=== PATIENT | female | born 2000 | race Caucasian/White ===

== ENCOUNTER 2021-08-04 21:36 | Inpatient (IN) ==
[2021-08-04] MEDS ORDERED: Lidocaine -MPF 1% 5 ML AMPUL INFILT PRN (21:39)
[2021-08-04] MEDS ORDERED: Metoclopramide 10 MG/2 ML VIAL IVP PRN (21:39)
[2021-08-04] MEDS ORDERED: Azithromycin 500 MG in 0.9 % Sodium Chloride 250 ML IVPB PRN (21:39)
[2021-08-04] MEDS ORDERED: Famotidine 20 MG/2 ML VIAL IVP PRN (21:39)
[2021-08-04] MEDS ORDERED: Ondansetron 4 MG/2 ML VIAL IVP PRN (21:39)
[2021-08-04] MEDS ORDERED: Naloxone 0.4 MG/ML INJ IVP PRN (21:39)
[2021-08-04] MEDS ORDERED: Ampicillin 2,000 MG in 0.9 % Sodium Chloride Mini Bag 100 ML IVPB ONE (22:00)
[2021-08-04] MEDS ORDERED: EPHEDrine 50 MG/ML VIAL IVP PRN (23:07)
[2021-08-04] MEDS ORDERED: Epidural Premix (fent/bupiv) 110 ML EP SCH (23:15)
[2021-08-04] MEDS: Ringers Solution, Lactated 1,000 ML IVC SCH (23:49)
[2021-08-05 00:20] LABS: Basophils % 0.2 %; Eosinophils % 0.1 %; Hematocrit 35.6 % (35.3-44.9); Hemoglobin 12.3 g/dL (11.5-15.4); Immature Granulocytes % 0.8 % (0-4); Lymphocytes # 1.8 K/mcL (0.6-4.6); Mean Corpuscular HGB Conc 34.6 g/dL (31.6-35.5); Mean Corpuscular Hemoglobin 31.5 pg (28.0-33.3); Mean Corpuscular Volume 91.3 fL (83.0-100.0); Mean Platelet Volume 9.2 fL (9.4-12.4); Monocytes % 5.9 %; Neutrophils # 14.6 K/mcL (1.6-8.9); Platelet Count 287 K/mcL (140-400); Red Cell Distribution Width 12.6 % (11.5-14.5); White Blood Count 17.6 K/mcL (4.3-11.1)
[2021-08-05 00:57] LABS: Influenza A PCR Negative (Negative); Influenza B PCR Negative (Negative); Resp. Syncytial Virus PCR Negative (Negative)
[2021-08-05 00:58] LABS: SARS-CoV-2 by PCR (In House) Negative (Negative)
[2021-08-05 01:15] LABS: Estimated Average Glucose 97 mg/dl
[2021-08-05] MEDS ORDERED: Ampicillin 1,000 MG in 0.9 % Sodium Chloride Mini Bag 100 ML IVPB SCH (02:00)
[2021-08-05] MEDS: Oxytocin 30 UNIT/503 ML BAG IVC SCH ×2 (04:46→08:30)
[2021-08-05] MEDS: Ringers Solution, Lactated 1,000 ML IVC SCH (04:52)
[2021-08-05] MEDS ORDERED: *HR* Nalbuphine 10 MG/ML AMPUL IV PRN (06:35)
[2021-08-05] MEDS ORDERED: *HR* OxyCODONE Immed Rel 5 MG TABLET PO PRN (11:24)
[2021-08-05] MEDS ORDERED: Benzocaine/Menthol 56 GM AEROSOL SPRAY TP PRN (11:24)
[2021-08-05] MEDS ORDERED: Ondansetron ODT 4 MG TAB.RAPDIS SL PRN (11:24)
[2021-08-05] MEDS ORDERED: Oxytocin 30 UNIT/503 ML BAG IVC SCH (11:24)
[2021-08-05] MEDS ORDERED: Lanolin 7 G OINT...G. TP PRN (11:24)
[2021-08-05] MEDS ORDERED: OXYTOCIN/RINGERS LACTATE 10 UNIT/166.6 ML BAG IVC ONE (11:24)
[2021-08-05] MEDS: Acetaminophen 325 MG TABLET PO SCH ×2 (12:03→17:50)
[2021-08-05] MEDS: Ibuprofen 600 MG TABLET PO SCH ×2 (15:29→17:49)
[2021-08-06] MEDS: Ibuprofen 600 MG TABLET PO SCH ×3 (00:26→12:37)
[2021-08-06] MEDS: Acetaminophen 325 MG TABLET PO SCH ×3 (00:26→12:37)
[2021-08-06 02:38] VITALS: TEMP 97.9
[2021-08-06 08:00] VITALS: BP 101/66; PULSE 72; O2SAT 98
[2021-08-06] MEDS ORDERED: Prenatal Vit/FA 1 EACH TABLET PO SCH (09:00)
== END 2021-08-06 12:49 | disposition home or self-care (01) | DRG 807 ==
LOC: 1NENULAB → 1NENUOBS 08-05 11:24
PROVIDERS: ADMIT Advanced Practice Midwife; ATTEND Advanced Practice Midwife